=== PATIENT | female | born 1985 | race Two or more races ===

== ENCOUNTER 2021-08-27 00:08 | Emergency (ER) | payer MEDICAID, SELFPAY ==
--- NOTE | ~2021-08-27 | US_ITS ---
EXAMINATION: US OB <=14 wk fetus w TV DATE: 08/27/2021 02:43 INDICATION: Left lower quadrant abdominal pain. . TECHNIQUE: Real-time transabdominal and transvaginal pelvic ultrasound was performed. COMPARISON: None. FINDINGS: TRANSABDOMINAL ULTRASOUND: The uterus measures 9.4 x 7.0 x 5.5 cm. TRANSVAGINAL ULTRASOUND: There is no visible intrauterine gestational sac. The endometrial complex me asures 3.3 cm in thickness. The right ovary measures 2.1 x 3.0 x 1.4 cm. The left ovary measures 2.1 x 1.2 x 2.4 cm. There is trace free fluid in the pelvis. IMPRESSION: 1. No visible intrauterine gestational sac with beta-hCG of 7937 mIU/mL. The differential diagnosis includes ectopic , spontaneous , and gestational trophoblastic disease. Reviewed, dictated and finalized at location A. IMPRESSION: 1. No visible intrauterine gestational sac with beta-hCG of 7937 mIU/mL. The d ifferential diagnosis includes ectopic , spontaneous , and ges tational trophoblastic disease.
[2021-08-27 00:16] VITALS: BP 124/86; PULSE 80; RESP 21; TEMP 36.8; O2SAT 100
--- NOTE | 2021-08-27 00:25 | ED.FEMALEGU ---
HPI - Female Genitourinary General Chief complaint: Vaginal Bleeding Stated complaint: ABD pain, brenda 2 wks ago, vaginal bleeding Time Seen by Provider: 08/27/21 00:14 Source: patient History of Present Illness HPI Narrative: Patient presents with vaginal bleeding. She was approximately 6 weeks when she initially follow-up with her OB she is getting routine care she had repeat hCG test she was having vaginal bleeding approximately 2 weeks ago which was downtrending and she was diagnosed with a miscarriage. She has follow-up with OB tomorrow to discuss possible need for D&C as she has had vaginal bleeding. Her pain in her is been increasing and her bleeding is getting worse so they came to the ER tonight for further evaluation. Reports she is passing clots. Reports her main area of pain is in her left lower quadrant describes a crampy sensation no clear aggravating or alleviating factors radiates to her lower abdomen/pelvis. She denies any urinary symptoms Related Data Home Medications Medication Instructions Recorded Confirmed No Home Medications 08/27/21 Allergies Allergy/AdvReac Type Severity Reaction Status Date / Time No Known Allergies Allergy Verified 08/27/21 00:18 Review of Systems Review of Systems: CONSTITUTIONAL: Denies fever, chills, or sweats. EYES: Denies visual changes, redness, or discharge. ENT: Denies rhinorrhea, congestion, sore throat, or otalgia. CARDIOVASCULAR: Denies chest pain, palpitations, or edema. RESPIRATORY: Denies cough or dyspnea. GASTROINTESTINAL: Denies nausea, vomiting, or diarrhea. GENITOURINARY: Denies dysuria or hematuria. SKIN: Denies rash or itching. MUSCULOSKELETAL: Denies back pain, joint pain, or myalgia. NEUROLOGIC: Denies headache, numbness, dizziness, or weakness. PSYCHIATRIC: Denies anxiety or depression. Exam Narrative: GENERAL: Well-appearing, well-nourished, and in no acute distress. HEAD: Normocephalic, atraumatic. EYES: PERRLA and EOMI. ENT: Nares clear, no rhinorrhea or epistaxis. Mucous membranes moist. NECK: Supple. No masses. No JVD ABDOMEN: Moderate tenderness in the left lower quadrant soft, nondistended, normal active bowel sounds. EXTREMITIES: Normal range of motion. No edema. SKIN: Warm, dry, no rash. NEURO: No focal deficits. Alert and oriented x3. PSYCH: Normal mood and affect. Course Reevaluation(s) Reevaluation #1: Patient is now without pain feeling much improved. Date: 08/27/21 Time: 04:01 Vital Signs Vital signs: Vital Signs Temperature 36.8 C 08/27/21 00:16 Pulse Rate 80 08/27/21 00:16 Respiratory Rate 21 H 08/27/21 00:16 Blood Pressure 124/86 08/27/21 00:16 Pulse Oximetry 100 08/27/21 00:16 Temperature 36.8 C 08/27/21 00:16 Pulse Rate 88 08/27/21 03:30 Respiratory Rate 16 08/27/21 03:30 Blood Pressure 99/62 L 08/27/21 03:30 Pulse Oximetry 100 08/27/21 03:30 MDM - Female Genitourinary MDM Narrative Medical decision making narrative: H&P as above, vss, pt looks clinically well, exam with left-sided pelvic pain, labs elevated hCG, AB+, img without clear evidence of ectopic but no intrauterine that would be confirmed, imaging also concerning for possible molar additional labs/img considered, symptomatic relief available as needed, on reevaluation pt continues to looks clinically well. Symptoms may represent include miscarriage versus molar patient is already scheduled follow-up with her OB this morning, dns significant hemorrhage, ectopic , endometritis. plan to tx/monitor as op w/ OB f/u findings/plan discussed with pt, pt agree/comfortable with plan, return precautions given Lab Data Result diagrams: 08/27/21 00:28 08/27/21 00:27 Labs: Lab Results 08/27/21 08/27/21 08/27/21 Range/Units 00:27 00:28 00:28 WBC 9.3 (4.5-10.0) K/mm3 RBC 3.99 L (4.2-5.4) M/mm3 Hgb 11.7 L (12.0-15.0) g/dL Hct 35.3 L (37
[2021-08-27] MEDS: SODIUM CHLORIDE 0.9% IV 500 ML 999 ML IV CONT (00:27)
[2021-08-27 00:33] LABS: Basophils Percent Auto 0.3 % (0.2-1.2); Eosinophils Percent Auto 3.4 % (0-4.4); Hematocrit 35.3 % (37.0-47.0); Hemoglobin 11.7 g/dL (12.0-15.0); Immature Granulocyte Absolute 0.03 K/mm3 (0.00-0.031); Immature Granulocyte Percent A 0.3 % (0-0.5); Mean Corpuscular HGB Conc 33.1 g/dl (32-36); Mean Corpuscular Hemoglobin 29.3 pg (26-34); Mean Corpuscular Volume 88.5 fl (80-100); Mean Platelet Volume 9.9 fl (7.4-10.4); Monocytes Percent Auto 6.4 % (2.6-8.5); Neutrophils Absolute Auto 5.8 K/mm3 (1.3-6.7); Neutrophils Percent Auto 62.6 % (45.5-73.1); Platelet Count Result 305 k/mm3 (150-375); Red Blood Count 3.99 M/mm3 (4.2-5.4); Red Cell Distribution Width 13.6 % (11.5-14.5); White Blood Count 9.3 K/mm3 (4.5-10.0)
[2021-08-27 00:34] LABS: Eosinophils Absolute Auto 0.3 K/mm3 (0-0.3); Lymphocytes Absolute Auto 2.52 K/mm3 (0.9-3.2); Monocytes Absolute Auto 0.6 K/mm3 (0.1-0.6)
[2021-08-27 00:59] LABS: Alanine Aminotransferase 13 U/L (4-35); Albumin Level 4.2 g/dL (3.5-5.1); Alkaline Phosphatase 51 U/L (38-126); Aspartate Amino Transferase 22 U/L (14-36); Bilirubin,Total 0.3 mg/dL (0.2-1.3); Blood Urea Nitrogen 8 mg/dL (7-17); Calcium 9.1 mg/dL (8.4-10.2); Carbon Dioxide 25 mmol/L (22-30); Estimated CRCL calculation 110 ml/min; Estimated Glomerular Filt Rate > 60; Glucose 97 mg/dL (65-110)
[2021-08-27 01:15] VITALS: BP 110/77; PULSE 62; RESP 12; O2SAT 100
[2021-08-27 01:41] LABS: Anion Gap 6 mmol/L (8-16); Chloride 105 mmol/L (98-107); Potassium 3.9 mmol/L (3.4-5.0); Sodium 136 mmol/L (137-145)
[2021-08-27 01:46] LABS: Add Urine Microscopic? YES; Appearance Urine Cloudy (Clear); Bilirubin Urine Negative (Negative); Blood Urine 2+ (Negative); Color Urine Red (Yellow); Glucose Urine UA Negative (Negative); Ketones Urine Negative (Negative); Leukocyte Esterase Ur Negative LEU/UL (Negative); Mucus Urine Rare /lpf; Nitrate Urine Negative (Negative); Protein Urine 2+ mg/dL (Negative); RBC Urine >75 /hpf (0-2); Urobilinogen Urine Negative mg/dL (<2.0); WBC Urine >75 /hpf
[2021-08-27 01:47] LABS: Specific Grav Ur 1.004 (1.001-1.035)
[2021-08-27] MEDS: MORPHINE SULFATE (*CRX) 4 MG/ML INJ IV PUSH (01:58)
[2021-08-27 02:04] VITALS: BP 128/86; PULSE 77; RESP 12; O2SAT 97
[2021-08-27 02:45] VITALS: BP 113/71; PULSE 74; RESP 18; O2SAT 98
[2021-08-27 03:30] VITALS: BP 99/62; PULSE 88; RESP 16; O2SAT 100
== END 2021-08-27 04:09 | disposition home or self-care (01) ==
PROVIDERS: Emergency Provider Emergency Medicine; PCP Emergency Medicine
DX: N93.9 Abnormal uterine and vaginal bleeding, unspecified (principal); R78.89 Finding of other specified substances, not normally found in blood
CPT/HCPCS: 36415; 76801; 76817; 80053; 81001; 84702; 85025; 85461; 87086; 87088; 96361; 96374; 96375; 99284; J0131; J2270; J7040

== ENCOUNTER 2022-09-07 14:07 | Emergency (ER) | payer OTHER, SELFPAY ==
--- NOTE | ~2022-09-07 | US_ITS ---
EXAMINATION:US venous doppler LE BI INDICATION:Ankle swelling TECHNIQUE: Multiple grayscale, color flow and Doppler images of the right and left lower extremity de ep venous systems were obtained and reviewed. COMPARISON:No prior studies for comparison. FINDINGS: The common femoral, superficial femoral and popliteal veins demonstrate normal respiratory variation, augmentation and compressibility. Color flow is also seen within the posterior tibial, pe roneal, greater saphenous and profunda veins. IMPRESSION: 1: No lower extremity deep venous thrombosis. Reviewed, dictated and finalized at location B.
[2022-09-07 14:09] VITALS: BP 129/88; PULSE 98; RESP 16; TEMP 36.4; O2SAT 100
--- NOTE | 2022-09-07 14:54 | ED.GENADULT ---
HPI - General Adult General Chief complaint: Unspecified Stated complaint: swollen feet Time Seen by Provider: 09/07/22 14:15 History of Present Illness HPI narrative: Patient is a 36-year-old female presenting with ankle swelling. Patient states that she had a 20+ hour flight back from [place] yesterday. States that she has had bilateral ankle swelling since that time. States that it is painful. States that she has had swelling of her legs before but never to this extent. Denies significant erythema. Denies sensory changes. Denies further complaints. No chest pain or shortness of breath. Related Data Home Medications Medication Instructions Recorded Confirmed No Home Medications 08/27/21 Allergies Allergy/AdvReac Type Severity Reaction Status Date / Time No Known Allergies Allergy Verified 09/07/22 14:12 Review of Systems Review of Systems: All systems reviewed & are unremarkable except as noted in HPI and below Exam Narrative: GENERAL: Well-appearing, well-nourished, and in no acute distress. HEAD: Normocephalic, atraumatic. EYES: PERRLA and EOMI. ENT: Nares clear, no rhinorrhea or epistaxis. Mucous membranes moist. NECK: Supple. CHEST: Clear to auscultation. No respiratory distress. HEART: Regular rate and rhythm. Normal peripheral pulses. ABDOMEN: Soft, nontender, nondistended EXTREMITIES: Normal range of motion. bilateral ankle swelling, nontender, nonerythematous, distal pulses 2+, brisk cap refills SKIN: Warm, dry, no rash. NEURO: No focal deficits. Alert and oriented x3. PSYCH: Normal mood and affect. Course Vital Signs Vital signs: Vital Signs Temperature 97.5 F L 09/07/22 14:09 Pulse Rate 98 09/07/22 14:09 Respiratory Rate 16 09/07/22 14:09 Blood Pressure 129/88 09/07/22 14:09 Pulse Oximetry 100 09/07/22 14:09 Oxygen Delivery Room Air 09/07/22 14:09 Temperature 97.5 F L 09/07/22 14:09 Pulse Rate 98 09/07/22 14:09 Respiratory Rate 16 09/07/22 14:09 Blood Pressure 129/88 09/07/22 14:09 Pulse Oximetry 100 09/07/22 14:09 Oxygen Delivery Room Air 09/07/22 14:09 Medical Decision Making MDM Narrative Medical decision making narrative: Patient is a 36-year-old female presenting with bilateral ankle swelling following a long flight. Vitals within normal limits. Exam remarkable for the above. Doppler of bilateral lower extremities reveals no evidence of DVT. Blood work is unremarkable. Suspect she just has dependent edema related to her long flight. Discussed appropriate supportive care with leg elevation. Advised PCP follow-up. Appropriate return precautions given. Patient voiced understanding and is agreeable with plan. Discharged in stable condition peer Differential Diagnosis Differential Diagnosis: DVT, peripheral edema Medical Records Medical records reviewed: Yes I reviewed the external patient's medical records. Vital Signs Vital Signs: Vital Signs Temperature 97.5 F L 09/07/22 14:09 Pulse Rate 98 09/07/22 14:09 Respiratory Rate 16 09/07/22 14:09 Blood Pressure 129/88 09/07/22 14:09 Pulse Oximetry 100 09/07/22 14:09 Oxygen Delivery Room Air 09/07/22 14:09 Temperature 97.5 F L 09/07/22 14:09 Pulse Rate 98 09/07/22 14:09 Respiratory Rate 16 09/07/22 14:09 Blood Pressure 129/88 09/07/22 14:09 Pulse Oximetry 100 09/07/22 14:09 Oxygen Delivery Room Air 09/07/22 14:09 Lab Data Lab results reviewed: Yes I reviewed the patient's lab results. 09/07/22 15:29 09/07/22 15:29 Labs: Lab Results 09/07/22 Range/Units 15:29 WBC 7.5 (4.5-10.0) K/mm3 RBC 4.01 L (4.2-5.4) M/mm3 Hgb 11.3 L (12.0-15.0) g/dL Hct 34.6 L (37.0-47.0) % MCV 86.3 (80-100) fl MCH 28.2 (26-34) pg MCHC 32.7 (32-36) g/dl RDW 13.8 (11.5-14.5) % Plt Count 299 (150-375) k/mm3 MPV 11.4 H (7.4-10.4) fl Immature Gran % (Auto) 0.1 (0-0.5) % Neut % (Au
[2022-09-07 15:34] LABS: Basophils Percent Auto 0.4 % (0.2-1.2); Eosinophils Absolute Auto 0.2 K/mm3 (0-0.3); Eosinophils Percent Auto 2.8 % (0-4.4); Hematocrit 34.6 % (37.0-47.0); Hemoglobin 11.3 g/dL (12.0-15.0); Immature Granulocyte Absolute 0.01 K/mm3 (0.00-0.031); Immature Granulocyte Percent A 0.1 % (0-0.5); Lymphocytes Absolute Auto 2.18 K/mm3 (0.9-3.2); Lymphocytes Percent Auto 29.1 % (18.3-44.2); Mean Corpuscular HGB Conc 32.7 g/dl (32-36); Mean Corpuscular Hemoglobin 28.2 pg (26-34); Mean Corpuscular Volume 86.3 fl (80-100); Mean Platelet Volume 11.4 fl (7.4-10.4); Monocytes Absolute Auto 0.5 K/mm3 (0.1-0.6); Monocytes Percent Auto 6.9 % (2.6-8.5); Neutrophils Absolute Auto 4.5 K/mm3 (1.3-6.7); Neutrophils Percent Auto 60.7 % (45.5-73.1); Platelet Count Result 299 k/mm3 (150-375); Red Blood Count 4.01 M/mm3 (4.2-5.4); Red Cell Distribution Width 13.8 % (11.5-14.5); White Blood Count 7.5 K/mm3 (4.5-10.0)
[2022-09-07 15:44] LABS: Anion Gap 6 mmol/L (8-16); Blood Urea Nitrogen 14 mg/dL (7-17); Calcium 8.6 mg/dL (8.4-10.2); Carbon Dioxide 25 mmol/L (22-30); Chloride 104 mmol/L (98-107); Estimated CRCL calculation 136 ml/min; Estimated Glomerular Filt Rate > 60; Glucose 103 mg/dL (65-110); Potassium 3.8 mmol/L (3.4-5.0); Sodium 135 mmol/L (137-145)
[2022-09-07 15:53] LABS: NT Pro B Type Natriuretic Pept 66 pg/mL (19.9-100)
== END 2022-09-07 16:51 | disposition home or self-care (01) ==
PROVIDERS: Emergency Provider Emergency Medicine; PCP Emergency Medicine
DX: M25.472 Effusion, left ankle (principal); M25.471 Effusion, right ankle; M25.475 Effusion, left foot; M25.474 Effusion, right foot
CPT/HCPCS: 36415; 80048; 83880; 85025; 93970; 99284

== ENCOUNTER 2023-03-01 15:47 | Outpatient (RCR) | payer OTHER, SELFPAY ==
[2023-03-01 17:12] VITALS: BP 132/85; PULSE 89
== END 2023-05-30 23:59 | disposition home or self-care (01) ==
LOC: ANHOBOP 15:47
PROVIDERS: PCP Emergency Medicine; Visit Provider Obstetrics & Gynecology
DX: O36.8120 Decreased fetal movements, second trimester, not applicable or unspecified (principal); Z3A.26 26 weeks gestation of pregnancy
CPT/HCPCS: 59025

== ENCOUNTER 2023-05-10 23:23 | Outpatient (RCR) | payer OTHER, SELFPAY | END 2023-08-08 23:59 | disposition home or self-care (01) | LOC: ANHOBOP 23:23 | PROVIDERS: PCP Emergency Medicine; Visit Provider Obstetrics & Gynecology | DX: O36.8130 Decreased fetal movements, third trimester, not applicable or unspecified (principal); Z3A.36 36 weeks gestation of pregnancy | CPT/HCPCS: 59025 ==

== ENCOUNTER 2023-05-29 06:01 | Inpatient (IN) | payer OTHER, SELFPAY ==
[2023-05-29] VITALS (29 sets, daily range): BP systolic 101–138; BP diastolic 60–94; PULSE 78–112; TEMP 36.3–36.8; BMI 35.6
--- NOTE | 2023-05-29 06:01 | LDADM ---
This patient, Destiny Malagon, was admitted to Labor/Delivery/Recovery 104 on 05/29/23 at 06:01. Plans for labor, pain management and were discussed with patient. Patient/family oriented to hospital policies and general routines including ID bracelet, bed and alarms, visiting hours, pain management, procedures, bathroom and other care routines, personal items, smoking policy, room service/diet and guest tray routines, infant security routines, and visiting hours. Patient/Family are encouraged to report perceived risks to care and to ask questions if they do not understand what they are told or what they should do. See OBIX for further documentation.
[2023-05-29 07:23] LABS: Basophils Percent Auto 0.2 % (0.2-1.2); Eosinophils Absolute Auto 0.1 K/mm3 (0-0.3); Eosinophils Percent Auto 0.8 % (0-4.4); Hematocrit 33.1 % (37.0-47.0); Hemoglobin 10.6 g/dL (12.0-15.0); Immature Granulocyte Absolute 0.03 K/mm3 (0.00-0.031); Immature Granulocyte Percent A 0.3 % (0-0.5); Lymphocytes Percent Auto 20.5 % (18.3-44.2); Mean Corpuscular Hemoglobin 28.4 pg (26-34); Mean Corpuscular Volume 88.7 fl (80-100); Mean Platelet Volume 10.7 fl (7.4-10.4); Monocytes Absolute Auto 0.5 K/mm3 (0.1-0.6); Monocytes Percent Auto 5.9 % (2.6-8.5); Neutrophils Absolute Auto 6.3 K/mm3 (1.3-6.7); Neutrophils Percent Auto 72.3 % (45.5-73.1); Platelet Count Result 260 k/mm3 (150-375); Red Blood Count 3.73 M/mm3 (4.2-5.4); Red Cell Distribution Width 14.1 % (11.5-14.5); White Blood Count 8.8 K/mm3 (4.5-10.0)
[2023-05-29 07:45] LABS: Glucose Point of Care 103 mg/dl (65-105)
[2023-05-29] MEDS: miSOPROStol 25 MCG TABLET 50 MCG BY MOUTH ×3 (07:46→15:34)
[2023-05-29 09:57] LABS: Glucose Point of Care 100 mg/dl (65-105)
[2023-05-29 12:35] LABS: Glucose Point of Care 126 mg/dl (65-105)
[2023-05-29 14:31] LABS: Rapid Plasma Reagin Non-Reactive (NonReactive)
[2023-05-29 14:33] LABS: Glucose Point of Care 97 mg/dl (65-105)
[2023-05-29 15:51] LABS: Glucose Point of Care 69 mg/dl (65-105)
[2023-05-29 18:52] LABS: Glucose Point of Care 87 mg/dl (65-105)
--- NOTE | 2023-05-29 18:57 | WPDANESEPPF ---
Anes - Initial Pre Proc Eval Procedure: Labor epidural Date/Time: 05/29/23 18:57 Surgeon: Eusebio Crarillo MD Pre Op Diagnosis: Labor pain Pre Op Diagnosis: Induction of Labor Patient Data Age: 37 Gender: F Height: 1.73 m Weight: 106.5 kg Last Vital Signs Temp 36.8 C 05/29/23 14:40 Pulse 96 05/29/23 18:31 BP 120/86 05/29/23 18:31 Allergies Allergy/AdvReac Type Severity Reaction Status Date / Time No Known Allergies Allergy Verified 04/26/23 12:40 Home Medications Medication Instructions Recorded Confirmed Type insulin NPH isoph U-100 human 100 28 unit subcut HS 04/26/23 04/26/23 History unit/mL subcutaneous cartridge levothyroxine 25 mcg tablet 25 mcg PO DAILY 04/26/23 04/26/23 History vits no.126-ferrous fum 1 tablet PO DAILY 04/26/23 04/26/23 History 28 mg iron-folic acid 800 mcg tablet (Classic ) Laboratory Tests 05/29/23 05/29/23 05/29/23 07:08 07:40 09:43 WBC 8.8 K/mm3 (4.5-10.0) RBC 3.73 L M/mm3 (4.2-5.4) Hgb 10.6 L g/dL (12.0-15.0) Hct 33.1 L % (37.0-47.0) MCV 88.7 fl (80-100) MCH 28.4 pg (26-34) MCHC 32.0 g/dl (32-36) RDW 14.1 % (11.5-14.5) Plt Count 260 k/mm3 (150-375) MPV 10.7 H fl (7.4-10.4) Immature Gran % (Auto) 0.3 % (0-0.5) Neut % (Auto) 72.3 % (45.5-73.1) Lymph % (Auto) 20.5 % (18.3-44.2) Geary % (Auto) 5.9 % (2.6-8.5) Eos % (Auto) 0.8 % (0-4.4) Baso % (Auto) 0.2 % (0.2-1.2) Lymph # (Auto) 1.80 K/mm3 (0.9-3.2) Geary # (Auto) 0.5 K/mm3 (0.1-0.6) Eos # (Auto) 0.1 K/mm3 (0-0.3) Baso # (Auto) 0.0 K/mm3 (0.0-0.1) Abs Immat Gran (auto) 0.03 K/mm3 (0.00-0.031) Absolute Neuts (auto) 6.3 K/mm3 (1.3-6.7) Absolute Nucleated RBC 0.0 K/mm3 (0.0-0.012) Nucleated RBC % 0.0 % (0.0-0.2) POC Capillary Glucose 103 mg/dl 100 mg/dl (65-105) (65-105) RPR Non-reactive (NonReactive) Blood Type AB Positive Antibody Screen Negative 05/29/23 05/29/23 05/29/23 12:25 14:22 15:48 WBC RBC Hgb Hct MCV MCH MCHC RDW Plt Count MPV Immature Gran % (Auto) Neut % (Auto) Lymph % (Auto) Geary % (Auto) Eos % (Auto) Baso % (Auto) Lymph # (Auto) Geary # (Auto) Eos # (Auto) Baso # (Auto) Abs Immat Gran (auto) Absolute Neuts (auto) Absolute Nucleated RBC Nucleated RBC % POC Capillary Glucose 126 H mg/dl 97 mg/dl 69 mg/dl (65-105) (65-105) (65-105) RPR Blood Type Antibody Screen 05/29/23 18:49 WBC RBC Hgb Hct MCV MCH MCHC RDW Plt Count MPV Immature Gran % (Auto) Neut % (Auto) Lymph % (Auto) Geary % (Auto) Eos % (Auto) Baso % (Auto) Lymph # (Auto) Geary # (Auto) Eos # (Auto) Baso # (Auto) Abs Immat Gran (auto) Absolute Neuts (auto) Absolute Nucleated RBC Nucleated RBC % POC Capillary Glucose 87 mg/dl (65-105) RPR Blood Type Antibody Screen Patient hx anesthesia problems: none Family hx anesthesia problems: none Results Review: All pre-operative results and documents have been reviewed as part of the pre-operative evaluation. [facility] Family History Family History Mother Diabetes mellitus Social History Social History (Reviewed 05/29/23 @ 18:58 by Eugenie Mendez
--- NOTE | 2023-05-29 19:42 | PM.IMHP ---
H&P: HPI History of Present Illness Date/Time: 05/29/23 0805 Chief Complaint: Medical induction of labor Narrative: Patient presents for medical induction of labor, indicated for GDMA2 on insulin. She has had appropriate glycemic control on 28u NPH qHS. EFW 67%. testing has been reassuring. otherwise complicated by AMA, declined bASA, and subclinical hypothyroidism. Review of Systems Review of Systems: All systems reviewed & are unremarkable except as noted in HPI and below PMFSH Family History Family History Mother Diabetes mellitus Social History Social History Smoking status: Never smoker Second hand tobacco smoke exposure: No Substance use: never Do You Feel Safe in your Home?: Yes Lack of Transportation: No Lack of Food: Never True Current Housing: I Have Housing Concerned About Future Housing: No Difficulty Paying Gas/Electric Bills: No Difficulty Paying for Meds: No Currently Unemployed: No Education: Bachelor's Degree Difficulty w/ Childcare or Family Care: No Spiritual care concerns: No Meds Home Medications and Allergies Home Medications Medication Instructions Recorded Confirmed Type insulin NPH isoph U-100 human 100 28 unit subcut HS 04/26/23 04/26/23 History unit/mL subcutaneous cartridge levothyroxine 25 mcg tablet 25 mcg PO DAILY 04/26/23 04/26/23 History vits no.126-ferrous fum 1 tablet PO DAILY 04/26/23 04/26/23 History 28 mg iron-folic acid 800 mcg tablet (Classic ) Allergies Allergy/AdvReac Type Severity Reaction Status Date / Time No Known Allergies Allergy Verified 04/26/23 12:40 Vital Signs Vital Signs - 24 hr 05/29/23 07:00 05/29/23 09:05 05/29/23 09:16 Temperature 98.2 F Pulse Rate 82 93 Blood Pressure 122/82 101/63 05/29/23 09:30 05/29/23 09:46 05/29/23 10:02 Temperature Pulse Rate 78 83 91 Blood Pressure 119/83 119/82 114/74 05/29/23 11:00 05/29/23 11:52 05/29/23 12:01 Temperature 97.3 F L Pulse Rate 96 100 Blood Pressure 117/74 110/69 05/29/23 12:31 05/29/23 13:01 05/29/23 13:31 Temperature Pulse Rate 96 96 90 Blood Pressure 114/79 115/83 119/85 05/29/23 14:01 05/29/23 14:31 05/29/23 14:40 Temperature 98.2 F Pulse Rate 84 85 Blood Pressure 115/77 123/81 05/29/23 15:05/29/23 16:01 05/29/23 16:31 Temperature Pulse Rate 83 83 80 Blood Pressure 110/69 121/78 129/87 05/29/23 17:31 05/29/23 18:01 05/29/23 18:31 Temperature Pulse Rate 87 90 96 Blood Pressure 121/79 135/83 120/86 Exam Const: General: comfortable and no acute distress Eyes: General: appearance normal, both eyes and all related structures Neck: Neck: supple Resp: Effort & Inspection: normal respiratory effort Cardio: Rate: regular rate Skin: General skin exam: normal color Extrem: General: normal to inspection H&P: Results Labs Labs: Short CBC 05/29/23 Range/Units 07:08 WBC 8.8 (4.5-10.0) K/mm3 Hgb 10.6 L (12.0-15.0) g/dL Hct 33.1 L (37.0-47.0) % Plt Count 260 (150-375) k/mm3 Assessment and Plan Assessment and plan (1) GDM, class A2: Code(s): O24.419 - Gestational diabetes mellitus in , unspecified control Status: Acute Assessment and Plan: blood sugar q2 > q1 in active labor (2) Encounter for induction of labor: Code(s): Z34.90 - Encounter for supervision of normal , unspecified, unspecified trimester Status: Acute Assessment and Plan: continue induction with cytotec. NST reactive
[2023-05-29] MEDS: LACTATED RINGERS 1,000 ML 125 ML IV CONT (21:09)
[2023-05-29] MEDS: OXYTOCIN 30 UNITS/NS 500 ML 30 UNITS/500 ML BAG IV CONT (21:18)
[2023-05-29 23:05] LABS: Glucose Point of Care 76 mg/dl (65-105)
[2023-05-29 23:05] LABS: Glucose Point of Care 134 mg/dl (65-105)
[2023-05-30] VITALS (98 sets, daily range): BP systolic 79–243; BP diastolic 37–222; PULSE 30–148; RESP 16–18; TEMP 36.3–36.9; O2SAT 80–100
[2023-05-30 02:35] LABS: Glucose Point of Care 77 mg/dl (65-105)
--- NOTE | 2023-05-30 04:28 | WPDANESEPN ---
Anes - Epidural Procedure Note Date/Time: 05/30/23 04:28 Consent: I have discussed with the patient/family/POA, the placement of an epidural catheter and the use of epidural narcotic/local anesthetic for labor analgesia and/or postoperative pain management, including associated potential risks, benefits, complications and side effects. I have discussed alternative methods of labor analgesia and/or postoperative pain management. The patient/family/POA, understand(s) and wish(es) to proceed with epidural narcotic/local anesthetic for labor analgesia and/or postoperative pain management. Time-Out: A pre-procedural Time-Out was completed immediately before starting the procedure and confirmed: Patient Identification, Site, Procedure, Patient Position and the Availability of Requisite Equipment. Clinical Indications: labor pain Epidural Insertion Note Patient position: sitting Skin prep: chlorhexidine and sterile drape Needle: 18g Tuohy-Schliff Catheter: 20g Unstyleted Technique: Loss of resistance. Level of insertion: L4/5 Catheter skin tabby (cm): 10 Length in epidural space (cm): 5 Skin anesthesia: lidocaine 1% Test dose: 1.5% Lidocaine with 1:[id number] Epi, negative for subarachnoid Inj and negative for intravascular Inj Time of test dose: 04:19 Observations: tolerated well Complications: none
[2023-05-30] MEDS: LACTATED RINGERS 1,000 ML 125 ML IV CONT (05:33)
[2023-05-30 05:41] LABS: Glucose Point of Care 102 mg/dl (65-105)
[2023-05-30 07:09] LABS: Glucose Point of Care 100 mg/dl (65-105)
[2023-05-30] MEDS: ONDANSETRON INJ 4 MG/2 ML VIAL IV PUSH (07:09)
[2023-05-30] MEDS: OXYTOCIN 30 UNITS/NS 500 ML 30 UNITS/500 ML BAG 125 UNITS IV CONT (09:21)
--- NOTE | 2023-05-30 11:25 | PM.OBPRVD ---
OB - Vaginal Delivery Note Procedure Delivery date: 05/30/23 Events: Diabetes Mellitus (GDMA2) Induction method: Per Misoprostol Protocol Delivery augmentation: Pitocin Delivery monitor: External FHT and External Uterine Route of delivery: Episiotomy description: None Laceration Description: Perineal - 2nd Degree Delivery repair: vicryl Specimen: Yes Quantitative Blood Loss (ml): 100 Anesthesia type: Epidural Disposition: Floor Complications: No immediate complications Baby Weeks of gestation at delivery: 39 gender: Female Weight (pounds): 8 Weight (ounces): 0 presentation: vertex position: Left Occiput Anterior Placenta delivery description: Expressed Cord Vessel Description: 3 Vessels
[2023-05-30] MEDS: WITCH HAZEL 40 PADS 1 PAD TOPICAL (12:47)
[2023-05-30] MEDS: BENZOCAINE 20% AER SPR (*SP) 56 GM CAN 1 SPRAY TOPICAL (12:47)
[2023-05-30] MEDS: IBUPROFEN 600 MG TABLET PO (15:20)
[2023-05-30] MEDS: ACETAMINOPHEN 325 MG TABLET 650 MG PO ×2 (15:20→21:52)
--- NOTE | 2023-05-30 16:07 | PC.NURSE ---
1500 Purposefully rounded to assess for needs. Introductions were made and when asked how is going mother confirms that everything is fine and infant is latching well and continued her face timing session. Father of baby and two step-sons are visiting in the room as well.
[2023-05-30] MEDS: CALCIUM CARBONATE (TUMS) 500 MG (200 MG ELEMENTAL) PO (21:52)
[2023-05-31 05:30] VITALS: BP 111/60; PULSE 77; RESP 18; TEMP 36.6; O2SAT 95
[2023-05-31] MEDS: IBUPROFEN 600 MG TABLET PO (06:30)
[2023-05-31] MEDS: ACETAMINOPHEN 325 MG TABLET 650 MG PO (06:30)
[2023-05-31] MEDS: POLYSACCHARIDE IRON COMPLEX 150 MG CAPSULE PO (06:31)
[2023-05-31] MEDS: MULTIVIT/MIN/PREN/FOL AC/IRON TABLET 1 TAB PO (06:31)
[2023-05-31] MEDS: DOCUSATE SODIUM 100 MG CAPSULE PO (06:31)
[2023-05-31 07:29] LABS: Hemoglobin 10.1 g/dL (12.0-15.0)
[2023-05-31 08:05] VITALS: BP 103/63; PULSE 88; RESP 16; TEMP 37.3; O2SAT 98
--- NOTE | 2023-05-31 10:45 | PM.OBPNVD ---
OB - PN: Subj Subjective Date/time seen: 05/31/23 10:45 Interval history: PPD#1 Doing well, pain well controlled Bleeding stable , doing well. would like discharge home today baby status: doing well feeding status: exclusively breast feeding OB - PN: Obj Data Labs 05/31/23 07:12 Labs: Laboratory Results - last 24 hr 05/31/23 07:12 Hgb 10.1 L Hct 31.0 L OB - PN A/P Plan day: 1 Plan: routine care and discharge home Time Spent With Patient Time: Total time spent is greater than 50% in coordination of care (as documented) at patient's floor/unit and/or counseling patient: Review of Systems Review of Systems: All systems reviewed & are unremarkable except as noted in HPI and below Exam Const: General: comfortable and no acute distress Eyes: General: appearance normal, both eyes and all related structures Neck: Neck: supple Resp: Effort & Inspection: normal respiratory effort Cardio: Rate: regular rate Skin: General skin exam: normal color Extrem: General: normal to inspection
--- NOTE | 2023-05-31 11:04 | PM.OBDSVD ---
DS: Admitting Diagnosis Discharge Date 05/31/23 Admitting Diagnosis GDMA2, induction of labor DS: Discharge Diagnosis Discharge Diagnosis (1) (spontaneous vaginal delivery): Code(s): O80 - Encounter for full-term uncomplicated delivery Status: Acute (2) GDM, class A2: Code(s): O24.419 - Gestational diabetes mellitus in , unspecified control Status: Acute OB - DS: Summary OB Procedures : None OB Procedures Intrapartum: Spontaneous Vag Delivery OB Procedures: : None Peripartum Data Laceration Description: Perineal - 2nd Degree Episiotomy description: None Time Spent with Patient Time attestation: Total time spent providing and/or coordinating discharge services: DS: Data Data Completed and Pending Pending studies at discharge: Pending at discharge 05/30/23 10:54 Surgical [PTH] Routine Labs on day of discharge: Labs from last 24 hours 05/31/23 07:12 Hgb 10.1 L Hct 31.0 L Discharge Plan Discharge Attending physician on discharge: Eusebio Carrillo Discharging Clinician: Eusebio Carrillo Patient Disposition: Home, Self-Care Activity: may shower and pelvic rest Diet: as tolerated Discharge Instructions: Education: Mom and Baby Guide Given to: Mother Follow-Up: Call your delivering provider's office for an appointment to be seen in: 6 Weeks Mom and baby should come to the [facility] for the follow-up appointment. Appointment Date/Time: June 01, 2023 at 11:00 am What to expect at your follow-up visit: Physical Assessment Call [phone] if you are unable to keep your appointment time. BREAST CARE: * Wear a snug supportive bra. * For engorgement discomfort: Breast Feeding: * Apply warm moist washcloths * Express milk as needed to relieve engorgement * Wear loose clothing * For sore nipples: * Identify correct latch-on * Apply warm moist washcloths before and after nursing * Air dry nipples after nursing * May apply Lansinoh cream to nipples EPISIOTOMY/PERINEAL CARE: * Until bleeding stops, use your ara bottle after urinating * Change your pad frequently throughout the day * You may take sitz baths several times a day (fill your bathtub with warm water and soak for 20 minutes.) Do NOT bathe in the water * No tub baths until seen by your physician - You may shower ACTIVITY: * Rest as much as possible. * Do not exercise or lift anything heavier than your baby (such as laundry or other children.) * Avoid stairs or driving as much as possible. * Do not put anything into the vagina. No douching, tampons, or sexual activity until seen by physician. NOTIFY PHYSICIAN IF YOU HAVE ANY QUESTIONS OR IF ANY OF THE FOLLOWING SYMPTOMS OCCUR: * If your episiotomy or incision becomes red, swollen, or more painful than what you have experienced in the hospital. * If your vaginal bleeding becomes foul smelling. * If your vaginal bleeding becomes more heavy than a period or if your bleeding changes from pink to bright red. However, you may pass an occasional walnut-sized clot once or twice for the first week . * If you experience a sharp, shooting pain in you calves. * If you discover a hard, reddened area on your breast or if you experience flu-like symptoms. DIET: * Eat regular, well-balanced meals. * Drink plenty of fluids daily. If , drink to thirst. Patient Instructions: Antibiotic Form Stand Alone Forms: General Discharge Information Follow-up/Referrals: Eusebio Carrillo MD [Physician] - 6 Weeks Discharge Medications: Continued Classic 28 mg iron- 800 mcg Tablet 1 tablet PO DAILY levothyroxine 25 mcg Tablet 25 mcg PO DAILY Discontinued Humulin N NPH U-100 Insulin 100 unit/mL Cartridge 28 unit SUBCUT HS Date of admission: 05/29/23 06:01 Primary Care P
--- NOTE | 2023-05-31 13:37 | WPDANLDPN2 ---
Anes-Prog Note L&D Date/Time: 05/31/23 13:37 Comfortable throughout: labor and delivery Neuraxial method: epidural Epidural/Spinal procedure site: clean & non-tender Neuro status: Neuro function grossly intact. Cardiovascular status: normal Respiratory status: normal Airway patency: baseline Mental status: baseline Post-Op hydration status: normal Vital Signs: Last Vital Signs Temp 99.1 F 05/31/23 08:05 Pulse 88 05/31/23 08:05 Resp 16 05/31/23 08:05 BP 103/63 05/31/23 08:05 Pulse Ox 98 05/31/23 08:05 O2 Del Method Room Air 05/30/23 21:32 Pain score (VAS): 0/10 Post-procedural complaints: none Patient feedback: Patient satisfied with anesthetic care.
--- NOTE | 2023-05-31 17:24 | PC.NURSE ---
1350 - Purposefully rounded to assess for needs and couplet had already been discharged to home.
[2023-06-01 11:47] VITALS: BP 122/78; PULSE 98; RESP 18; TEMP 36.7; O2SAT 98
== END 2023-05-31 13:45 | disposition home or self-care (01) | DRG 560 ==
LOC: ANHLDR 06:06 → ANHOB2 05-30 13:06
PROVIDERS: Admitting Provider Obstetrics & Gynecology; PCP Emergency Medicine; Visit Provider Obstetrics & Gynecology
DX: O24.424 Gestational diabetes mellitus in childbirth, insulin controlled (principal); O70.1 Second degree perineal laceration during delivery; O69.81X0 Labor and delivery complicated by cord around neck, without compression, not applicable or unspecified; Z3A.39 39 weeks gestation of pregnancy; Z37.0 Single live birth
CPT/HCPCS: 36415; 82948; 84112; 85014; 85018; 85025; 86592; 86850; 86900; 86901; 88307; A9270; J2405; J2590; J2795; J7120